=== PATIENT | female | born 1995 | race Caucasian/White ===

== ENCOUNTER → 2016-07-12 | Outpatient (CLI) | payer MEDICAID ==
[~2016-07-12] MED LIST: ALBUTEROL2 PUFFS/17 IN; BACTRIM DS 8001 TAB PO; BACTROBAN21 NS; CIPRO 500MG TA500 MG PO; FLAGYL 500MG.500 MG PO; FLEXERIL10 MG PO; FLEXERIL5 MG PO; IBUPROFEN600 MG PO; IMPLANON68 MG ID; KEFLEX 500MG.500 MG PO; MOTRIN 400MG.400 MG PO; MOTRIN400 MG PO; NOMEDS; NOMEDS *; PERCOCET 5/3251 EACH PO; PHENERGAN120 ML/BOT PO; RONDEC-DM 118118 ML PO; SEPTRA DS 800 M1 TAB PO; SULFAMETHOXAZOL1 TA6 PO; TESSALON PERLE100 MG PO; VIBRAMYCIN 100100 MG PO; VOLTAREN75 MG PO; ZANTAC 150150 MG PO; ZITHROMAX Z PA250 MG PO; ZOFRAN4 MG PO; [UNRECOGNIZED DRUG - OTHER] PO
== END ==
LOC: LAB 11:35
DX: Z34.80 Encounter for supervision of other normal pregnancy, unspecified trimester (principal)

== ENCOUNTER 2017-04-25 06:26 | Day surgery (SDC) | payer MEDICAID ==
[~2017-04-25] VITALS: Ht 167.6 cm; Wt 81.2 kg
--- NOTE | 2017-04-25 08:38 | Operative Note ---
Procedure/Operative Record Procedure Date of procedure: 04/25/17 Pre-Op Dx: Desire for sterilization Post-Op Dx: Desire for sterilization Procedure performed: Laparoscopic bilateral salpingectomy Surgeon: Dr. Mati Lackey Supervisor Small Appliance Assembly(s): None Anesthesia: Russ Aleta EBL (ml): 25 Clinical note: She is a 22-year-old 2 para 2 young lady who expressed desire for sterilization. The risks and benefits as well as the irreversibility of bilateral salpingectomy were discussed with the patient prior to surgery. Operative findings: She had a normal-appearing pelvis. The uterus was anteverted and normal in shape and size. Both tubes were followed to their fimbriated ends and appeared normal. The ovaries appeared normal. The deep pelvis. Normal. She was somewhat constipated. The upper abdomen was visualized and appeared normal. Operative note: She was taken to the operating room where general anesthesia was found to be adequate. She was prepped and draped in the normal sterile fashion in the semi- lithotomy position. A weighted speculum was placed in the vagina and the anterior lip of the cervix was grasped with a tenaculum. Suresh dilators were used to dilate the cervix to 4 mm. I then inserted a Karmen uterine manipulator into the uterine cavity. The balloon was insufflated. I injected 10 mL of 0.5 percent ropivacaine around the umbilicus. I made a small incision within the umbilicus and inserted a Veress needle into the abdominal cavity. The abdominal cavity was then insufflated with carbon oxide gas to a pressure of 20 mmHg. I then inserted a 5 mm trocar under direct vision. I injected through and through the pubic hairline, made a small incision here and inserted an 8 mm trocar under direct vision. I identified the inferior epigastric arteries on the LEFT side, went lateral to these and injected through and through. I then inserted a 5 mm trocar under direct vision. The RIGHT tube was then grasped at the cornua and using harmonic scalpel I cauterized the tube and then cut through the tube. I then grasped the distal end of the tube and using Harmonic scalpel oncoagulation mode I cut through the mesosalpinx. The tube was then removed. This was similarly performed on the patient's LEFT side. I then injected 30 mL of 0.5 percent ropivacaine into the pelvis. After assuring hemostasis I then let the gas the abdomen once again and assured hemostasis. The abdomen was then reinsufflated with carbon oxide gas. The secondary trochars were then removed under direct vision and the gas was let out of the abdomen. The 8 mm trocar site was closed deeply with 2-0 Vicryl suture. Skin was closed with subcuticular 4-0 Monocryl suture. The 5 mm trocar sites were closed with subcuticular 4-0 Monocryl suture. Sterile dressings were applied. The patient tolerated the procedure well and was taken to the recovery room in excellent condition. All sponge instrument and needle counts were correct. Estimated blood loss was less than 10 mL. Conplications: None Specimens: Bilateral fallopian tubes at 0816
--- NOTE | 2017-04-25 08:41 | Anesthesia Record ---
Anesthesia Record Part I Total IV fluids: 450 EBL (ml): 10 Urine Output: 75 B/P: 130/84 % SaO2: 100 Pulse: 53 Resps: 18 Temp: 97.0 Patient is: Drowsy, Stable Stable to PACU at: 0835 at 0840
--- NOTE | 2017-04-25 08:41 | Anesthesia Record ---
Anesthesia Record Part II Discharge time: 904 Destination: Same day surgery PACU nurse assessment review? Yes Patient is: Stable Anesthesia complications? No at 0841
[2017-04-25 10:23] VITALS: BP 115/63
== END 2017-04-25 10:03 | disposition home or self-care (01) ==
LOC: SDC 06:26
PROVIDERS: Nurse Practitioner Obstetrics & Gynecology
PROC: 0UT74ZZ Resection of Bilateral Fallopian Tubes, Percutaneous Endoscopic Approach (ICD-10-PCS; principal; 2017-04-25 07:30)
DX: Z30.2 Encounter for sterilization (principal)